=== PATIENT | female | born 1955 | race Caucasian/White ===

== ENCOUNTER → 2017-10-07 | Outpatient (CLI) | payer BC ==
[~2017-10-07] MED LIST: [UNRECOGNIZED DRUG - REMARK]
--- NOTE | 2017-10-08 13:48 | RADIOLOGY IMAGING REPORT ---
FACILITY: [facility] - [place] PATIENT NAME: JOSE DAVID BEY : [id number] MR: [id number] V: [id number] EXAM DATE: ORDERING PHYSICIAN: LU PETERS TECHNOLOGIST: Violeta Kaiser PROCEDURE:BILATERAL DIGITAL SCREENING MAMMOGRAM WITH CAD ASSISTED INTERPRETATION & 3D TOMOSYNTHESIS COMPARISON:Prior mammograms 09/19/16, 09/16/15, 09/10/14, 09/08/13, 09/04/12. INDICATIONS:SCREENING FINDINGS: Moderately heterogeneous fibroglandular tissue is seen throughout the breasts. The parenchymal pattern has remained stable allowing for difference in mammographic technique & patient positioning. There is no evidence of malignant appearing mass, malignant appearing calcifications or other secondary sign of malignancy in either breast. DIAGNOSTIC CATEGORY 1--NEGATIVE. RECOMMENDATIONS: ROUTINE MAMMOGRAM AND CLINICAL EVALUATION. IMPRESSION: BIRADS 1: Negative No significant abnormality is seen. Dictated by: Elizabeth Colby M.D. on 10/07/2017 at 16:38 Transcribed by: ALIREZA on 10/08/2017 at 8:39 Approved by: Elizabeth Colby M.D. on 10/08/2017 at 13:47 [facility]
== END ==
LOC: MAMO 01:12
PROVIDERS: ATTEND Nurse Practitioner Family
DX: Z12.31 Encounter for screening mammogram for malignant neoplasm of breast (principal)
CPT/HCPCS: 77063; 77067

== ENCOUNTER → 2018-04-01 | Outpatient (CLI) | payer MEDICARE, OTHER ==
--- NOTE | 2018-04-01 14:00 | RADIOLOGY IMAGING REPORT ---
FACILITY: [facility] PATIENT NAME: Kusum Ortiz : 1955 MR: [id number] V: [id number] EXAM DATE: ORDERING PHYSICIAN: LU PETERS TECHNOLOGIST: Location: [facility] [place] Patient: Kusum Ortiz : 1955 Visit/Account:[id number] Date of Sevice: 04/01/2018 THYROID HISTORY: Thyroid nodule on exam. COMPARISON: None. FINDINGS: Thyroid size: Normal. Right lobe: 5.2 x 1.0 x 1.5 cm Left lobe: 5.1 x 0.8 x 1.7 cm Isthmus: 2mm Thyroid nodules: Right lobe: Cystic nodule measuring 3.5 mm medial aspect lower lobe Left lobe: Simple appearing 5.8 mm cyst Isthmus: None discrete. Thyroid vascularity: Within normal limits. IMPRESSION: 1. Unremarkable thyroid ultrasound 2. No finding to correlate with the palpable abnormality Report Dictated By: Campbell Milan MD at 04/01/2018 1:51 PM Report E-Signed By: Campbell Milan MD at 04/01/2018 1:56 PM WSN:[id number]
== END ==
LOC: US 00:27
PROVIDERS: ATTEND Nurse Practitioner Family
DX: E01.0 Iodine-deficiency related diffuse (endemic) goiter (principal)
CPT/HCPCS: 76536

== ENCOUNTER 2018-09-10 00:02 | Day surgery (SDC) | payer MEDICARE, OTHER ==
[2018-09-10] VITALS (7 sets, daily range): BP systolic 95–139; BP diastolic 56–82
[~2018-09-10] VITALS: Ht 168.9 cm; Wt 49.4 kg
[~2018-09-10 00:02] MED LIST changes: +ESTR42.59 VG
[2018-09-10] MEDS ORDERED: NORMOSOL R SOLN(*) 1000 ML BAG 1,000 ML IV PRN (09:15)
[2018-09-10] MEDS ORDERED: LIDOCAINE/SOD BICARB 8.4% SYR ID ONE (09:15)
--- NOTE | 2018-09-10 09:57 | NUR ---
0957- PT BROUGHT TO BAY 4 VIA CART, PT IN LL POSITION, UNRESPONSIVE AT THIS TIME, VSS, OXY MASK IN PLACE AT 6LPM, PT MAINTAINING SATS, RESPIRATIONS AND AIRWAY, WILL CONTINUE TO MONITOR SEE NOTES FOR DETAILS, SBAR REPORT FROM MIKE GREENWOOD AND DR. MILLER 0925- TITRATED O2 DOWN TO 3LPM VIA OXY MASK WHILE PT RESTING 1020- PT AWAKE TOLERATING COFFEE, PLACED ON RA 1030- PT VISITING WITH FELLOW RN AT BEDSIDE 1059- SL IV 1100- ORHTO VSS 1103- PT AMBULATORY TO RESTROOM, STEADY GAIT NOTED, VOID X 1 WITHOUT ISSUE 1107- D/C IV WITH CATH INTACT, PRESSURE DRESSING APPLIED WITH GAUZE AND COBAND 1110- PT DRESSED 1115- REVIEWED D/C INSTRUCTIONS WITH PT AND SO 1118- PT WALKED TO LOBBY BY ANTONIO GREENWOOD AND SO ABDIRAHMAN, THEY WILL BE GOING TO THE [place]
--- NOTE | 2018-09-10 10:04 | Short(Outpt) Discharge Summary ---
Discharge Summary Reason for Hosp/Final Diag: (1) Colon cancer screening Status: Chronic Hospital Course & Plan: Colonoscopy completed without any problems. Normal. C-scope in 10 years. Departure Discharge to: Home, Self Care Discharge Instructions Home Meds Reported Medications Estradiol (ESTRACE) 42.5 Gm Cream.appl, 1 GM VG 2XW 08/28/18 Diet: Regular Activity: As Tolerated Special Instructions: Your colonoscopy was completed without any problems and your prep was excellent (Good Job!!). I didn't find any abnormalities. No polyps, cancer, etc. I recommend that your next colonoscopy be in 10 years. ERWIN SPEARS MD Sep 10, 2018 10:04
== END 2018-09-10 11:18 | disposition home or self-care (01) ==
LOC: OR 00:02
PROVIDERS: ATTEND Surgery
DX: Z12.11 Encounter for screening for malignant neoplasm of colon (principal)
CPT/HCPCS: 00812; G0121

== ENCOUNTER → 2018-12-30 | Outpatient (CLI) | payer MEDICARE, OTHER ==
--- NOTE | 2018-12-31 09:20 | RADIOLOGY IMAGING REPORT ---
FACILITY: [facility] PATIENT NAME: JOSE DAVID BEY : [id number] MR: [id number] V: [id number] EXAM DATE: [id number] ORDERING PHYSICIAN: LU PETERS TECHNOLOGIST: Violeta Kaiser PROCEDURE: BILATERAL DIGITAL SCREENING MAMMOGRAM WITH CAD ASSISTED INTERPRETATION & 3D TOMOSYNTHESIS. REASON FOR STUDY: Screening. FAMILY HISTORY OF BREAST CANCER: Mother. BREAST PROCEDURES/TREATMENTS: None. COMPARISON: 10/07/17, 09/19/16, 09/16/15, 09/10/14, 09/08/13. VIEWS OBTAINED: Bilateral 2D & 3D full field CC & MLO projections. BREAST DENSITY: The breasts are heterogeneously dense which can obscure small masses. MAMMOGRAM FINDINGS: The parenchymal pattern has remained stable allowing for difference in mammographic technique & patient positioning. IMPRESSION: BIRADS 1: Negative. DIAGNOSTIC CATEGORY 1--NEGATIVE. RECOMMENDATIONS: ROUTINE MAMMOGRAM AND CLINICAL EVALUATION. Dictated by: Elizabeth Colby M.D. on 12/30/2018 at 17:22 Transcribed by: ALIREZA on 12/31/2018 at 8:04 Approved by: Elizabeth Colby M.D. on 12/31/2018 at 9:17 [facility]
== END ==
LOC: MAMO 00:28
PROVIDERS: ATTEND Nurse Practitioner Family
DX: Z12.31 Encounter for screening mammogram for malignant neoplasm of breast (principal)
CPT/HCPCS: 77063; 77067